=== PATIENT | female | born 1995 | race Caucasian/White ===

== ENCOUNTER 2018-09-28 12:59 | Emergency (ER) | payer OTHER ==
[~2018-09-28] VITALS: Ht 162.6 cm; Wt 84.1 kg
[~2018-09-28 12:59] MED LIST: NITR-58 PO
[2018-09-28 13:03] VITALS: BP 119/72; PULSE 90; RESP 20; Ht 162.6 cm; Wt 84.1 kg
--- NOTE | 2018-09-28 14:16 | ERD ---
ER Documentation Chief Complaint Chief Complaint burning and pain on urination since yesterday morning HPI 22yo female without significant past medical history presents for burning and pain with urination x1 day. She states that she has urinary urgency and frequency. Pain is noted to be 5 out of 10 with urination. Described as a burning sensation. There is no pain radiation. She denies any fevers or chills. Denies back pain or flank pain. Denies chest pain shortness of breath. Denies abdominal pain, nausea, vomiting. No other modifying factors noted, no treatment tried at home. ROS All systems reviewed and are negative except as per history of present illness. Medications Home Meds Active Scripts Nitrofurantoin Monohyd Macrocr* (Macrobid*) 100 Mg Capsr, 100 MG PO BID for uti for 5 Days, #10 CAP Prov:JESÚS RDZ 09/28/18 Allergies Allergies: Coded Allergies: No Known Allergy (Unverified , 09/28/18) PMhx/Soc Medical and Surgical Hx: pt denies Surgical Hx Hx Alcohol Use: No Hx Substance Use: No Hx Tobacco Use: No Smoking Status: Never smoker FmHx Family History: No coronary disease Physical Exam Vitals Vital Signs Date Temp Pulse Resp B/P (MAP) Pulse Ox O2 O2 Flow FiO2 Time Delivery Rate 09/28/18 99.1 90 20 119/72 97 13:03 (88) Physical Exam Const: No acute distress Resp: Clear to auscultation bilaterally Cardio: Regular rate and rhythm, no murmurs Abd: Soft, non distended. Normal bowel sounds, no McBurney's point tenderness, no Slaughter sign, no rebound or guarding noted Skin: No petechiae or rashes Back: No midline or flank tenderness Ext: No cyanosis, or edema Neur: Awake and alert Psych: Normal Mood and Affect Procedures/MDM Medical Decision Making: Differential diagnosis includes but not limited to urinary tract infection, kidney stone, pyelonephritis Patient appeared well on physical exam. Symptoms consistent with a urinary tract infection. Low suspicion for pyelonephritis given no flank or back pain, no fever. Prescription(s): Patient given prescription for supportive medication(s) and Macrobid for urinary tract infection.. Patient advised to follow up with PCP in 1-2 days. Patient advised to return to ED for new or worsening symptoms. Patient stable on discharge from the ED. Disclaimer: Inadvertent spelling and grammatical errors are likely due to EHR/dictation software use and do not reflect on the overall quality of patient care. Also, please note that the electronic time recorded on this note does not necessarily reflect the actual time of the patient encounter. Departure Diagnosis: Primary Impression: UTI (urinary tract infection) Urinary tract infection type: acute cystitis Hematuria presence: without hematuria Qualified Codes: N30.00 - Acute cystitis without hematuria Condition: Fair Patient Instructions: Understanding Urinary Tract Infections (UTIs) Additional Instructions: Call your primary care doctor TOMORROW for an appointment during the next 1-2 days.See the doctor sooner or return here if your condition worsens before your appointment time. JESÚS RDZ DO Sep 28, 2018 14:16
== END 2018-09-28 13:58 | disposition home or self-care (01) ==
LOC: FTE 12:59
DX: N30.00 Acute cystitis without hematuria (principal)
CPT/HCPCS: 99283